=== PATIENT | male | born 1985 | race Caucasian/White ===

== ENCOUNTER 2019-04-20 12:51 | Emergency (ER) | payer BC ==
[~2019-04-20] VITALS: Ht 182.9 cm; Wt 136.1 kg
[2019-04-20] MEDS ORDERED: ALBUTEROL FS 2.5 MG/3 ML VIAL.NEB ONE (14:19)
[2019-04-20] MEDS ORDERED: IPRATROPIUM NEB FS 0.5 MG/2.5 ML AMPUL.NEB ONE (14:19)
[2019-04-20] MEDS ORDERED: IBUPROFEN 600 MG TABLET PO ONE ×2 (14:30→15:07)
[2019-04-20] MEDS ORDERED: IPRATROPIUM NEB FS 0.5 MG/2.5 ML AMPUL.NEB NEB ONE (14:30)
[2019-04-20] MEDS ORDERED: ALBUTEROL FS 2.5 MG/3 ML VIAL.NEB NEB ONE (14:30)
[2019-04-20] MEDS ORDERED: ACETAMINOPHEN 325 MG TABLET PO ONE (14:30)
[2019-04-20] MEDS ORDERED: ACETAMINOPHEN ES 500 MG TABLET ONE (15:07)
[2019-04-20] MEDS ORDERED: AZITHROMYCIN 250 MG TABLET ONE (15:23)
[2019-04-20] MEDS ORDERED: CEFTRIAXONE 1 G VIAL ONE (15:23)
[2019-04-20] MEDS ORDERED: CEFTRIAXONE 1 G VIAL IM ONE (15:30)
[2019-04-20] MEDS ORDERED: CEFTRIAXONE 1GM BAG (ER ONLY) 1 GM/50 ML PIGGYBACK IV ONE (15:30)
[2019-04-20] MEDS ORDERED: AZITHROMYCIN 250 MG TABLET PO ONE (15:30)
[2019-04-20 15:53] VITALS: BP 127/74
== END 2019-04-20 15:54 | disposition home or self-care (01) ==
LOC: ER 12:51
DX: J18.9 Pneumonia, unspecified organism (principal); J10.1 Influenza due to other identified influenza virus with other respiratory manifestations; R50.9 Fever, unspecified; I10 Essential (primary) hypertension; R00.0 Tachycardia, unspecified
CPT/HCPCS: 71045; 87804 ×2; 94640; 96365; 99284; J0696